=== PATIENT | female | born 1985 | race Caucasian/White ===

== ENCOUNTER 2019-05-02 11:09 | Emergency (ER) | payer BC, MEDICAID ==
[2019-05-02 11:30] VITALS: BP 151/93
[2019-05-02] MEDS ORDERED: Ketorolac *IM* INJ* 60 MG/2 ML VIAL IM ONE (12:52)
[2019-05-02] MEDS ORDERED: Amoxicillin PO (*) 400 MG/5 ML BOTTLE PO ONE (12:53)
--- NOTE | 2019-05-02 12:57 | UC ---
General HPI - HPI Summary HPI Summary: Patient states two days ago started with sore throat - significant pain with swallowing liquids or solids. Not sure if she has a fever. No cough or congestion. No N/V/D. Patient states was very painful to have chicken broth last night. Today has not had anything to eat or drink at all due to pain and swelling. No SOB. MEds: reviewed - History of Current Complaint Chief Complaint: UCRespiratory Stated Complaint: SORE THROAT Time Seen by Provider: 05/02/19 12:30 Hx Last Menstrual Period: 04/28/19 Pain Intensity: 10 - Allergy/Home Medications Allergies/Adverse Reactions: Allergies Allergy/AdvReac Type Severity Reaction Status Date / Time No Known Allergies Allergy Verified 05/02/19 11:30 Home Medications: Home Medications Dm/PE/Acetaminophen/Doxylamine [Vicks Dayquil/Nyquil Cold] 1 mis PO ONCE [History Confirmed 05/02/19] Etonogestrel [Nexplanon] 1 tab PO ONCE 05/02/19 [History Confirmed 05/02/19] PMH/Surg Hx/FS Hx/Imm Hx Previously Healthy: Yes - Surgical History Surgical History: None - Social History Alcohol Use: Occasionally Substance Use Type: None Smoking Status (MU): Light Every Day Tobacco Smoker Amount Used/How Often: 3 cig/day Household Exposure Type: Cigarettes Review of Systems All Other Systems Reviewed And Are Negative: Yes ENT: Positive: Sore Throat Physical Exam Triage Information Reviewed: Yes Appearance: Well-Appearing Vital Signs: Initial Vital Signs Temp 97.7 F 05/02/19 11:26 Pulse 99 05/02/19 11:26 Resp 18 05/02/19 11:26 BP 151/93 05/02/19 11:26 Pulse Ox 99 05/02/19 11:26 ENT: Positive: Pharyngeal erythema, TMs normal, Tonsillar swelling, Tonsillar exudate Neck: Positive: Supple, Enlarged Nodes @ - anterior cervical chain Respiratory: Positive: Lungs clear, Normal breath sounds Cardiovascular: Positive: RRR, No Murmur Course/Dx - Course Course Of Treatment: This is a 33 yr old with sore throat and difficulty with eating or drinking Rapid strep positive Due to difficulty with liquids from pain and swelling - Ketoralac 60 mg IM given PO challenge and Amoxicillin 500 mg liquid given without any difficulty Also able to take in some crackers - states her throat already feels better Plan Continue Amoxicillin as directed 2x/day for 10 days Continue to drink plenty of fluids Ibuprofen as needed for pain/fever as directed If symptoms persist or worsen, return to urgent care or go to the ER - Diagnoses Provider Diagnosis: Pharyngitis due to group A beta hemolytic Streptococci Discharge ED - Sign-Out/Discharge Documenting (check all that apply): Patient Departure All imaging exams completed and their final reports reviewed: No Studies - Discharge Plan Condition: Fair Disposition: HOME Prescriptions: Amoxicillin [Amoxicillin 250 MG/5 ML] 500 mg PO BID #1 bottle Patient Education Materials: Strep Throat (ED) Referrals: Yanci Yañez DO [Doctor of Osteopathy] - No Primary Care Phys,NOPCP [Primary Care Provider] - Additional Instructions: Continue Amoxicillin as directed 2x/day for 10 days Continue to drink plenty of fluids Ibuprofen as needed for pain/fever as directed If symptoms persist or worsen, return to urgent care or go to the ER - Billing Disposition and Condition Condition: FAIR Disposition: Home
== END 2019-05-02 13:50 | disposition home or self-care (01) ==
LOC: UCEAST 11:09
DX: J02.0 Streptococcal pharyngitis (principal); B95.0 Streptococcus, group A, as the cause of diseases classified elsewhere; F17.290 Nicotine dependence, other tobacco product, uncomplicated
CPT/HCPCS: 87651; 99202; G0463; J1885